=== PATIENT | male | born 1960 ===

== ENCOUNTER 2021-11-18 06:13 | Day surgery (SDC) | payer OTHER ==
[~2021-11-18] VITALS: Ht 167.6 cm; Wt 63.5 kg
[2021-11-18] MEDS ORDERED: PERCOCET 5-3251 EACH PO (09:51)
[2021-11-18] MEDS ORDERED: NEURONTIN600 M1 PO (09:51)
[2021-11-18] MEDS ORDERED: POLY119PG PO (09:51)
== END 2021-11-18 12:15 | disposition home or self-care (01) ==
LOC: CIR.AMB 06:13
PROVIDERS: ATTEND Surgery
DX: K40.91 Unilateral inguinal hernia, without obstruction or gangrene, recurrent (principal); G62.9 Polyneuropathy, unspecified; Z20.822 Contact with and (suspected) exposure to COVID-19